=== PATIENT | male | born 1965 | race Caucasian/White ===

== ENCOUNTER → 2018-12-10 09:07 | Outpatient (CLI) | payer MEDICAID ==
--- NOTE | 2018-12-15 11:45 | ST ---
PATIENT:HUEY CARPENTER MEDICAL RECORD: [id number] SEX: M LOCATION:[facility] ORDER #: ADMISSION DATE: 12/10/18 AGE OF PATIENT: 53 REFERRING PHYSICIAN: INTERPRETING PHYSICIAN: ROSCOE ROWAN MD DATE OF SERVICE: 12/10/2018 PROCEDURE: Nuclear stress test. INDICATION: Angina, shortness of breath, diabetes. He was exercised on standard Efren protocol for 5 minutes, achieving greater than 85% of max target heart rate response with 32 mCi of sestamibi injected at peak stress, 11 mCi was used previously for rest images. FINDINGS: Gated SPECT reveals preserved ejection fraction at 66% with good wall motion and thickening and brightening throughout all segments. SPECT imaging Cardiolite was used as myocardial fusion agent. There is homogeneous uptake throughout all segments at rest and stress with no evidence of inducible ischemia or previous infarction. OVERALL IMPRESSION: 1. This is a normal nuclear stress test with no evidence of inducible ischemia or previous infarction. 2. Gated SPECT reveals a preserved ejection fraction at 66%. In this patient with ongoing symptomatology, the current scan does not suggest the presence of hemodynamically significant coronary artery disease. Evaluate noncardiac etiology of chest pain. TRANSINT:[id number] Voice Confirmation ID: [id number] DOCUMENT ID: [id number] ROSCOE ROWAN MD at 1145 CC: [id number] DICTATION DATE: 12/10/18 1617 TELECOMMUNICATION LINES REPAIRER: 12/10/18 193 DEP CLI 12/10/18 [facility] [address] [place] [address]
== END | disposition home or self-care (01) ==
LOC: D.HCCARDIO 09:00
DX: I20.9 Angina pectoris, unspecified (principal)